=== PATIENT | female | born 1965 | race Caucasian/White ===

== ENCOUNTER 2017-04-07 10:00 | Inpatient (IN) | payer OTHER ==
--- NOTE | ~2017-04-07 | DS ---
Unit #: [id number] #: [id number] Patient: DAMION BILLINGSLEY [id number] [facility] [address] [place] [address] [id number] I MR#: [id number] NAME: DAMION BILLINGSLEY ROOM: 79 Age: 51 Sex: F Admission Date: 04/07/2017 : 1965 Discharge Date: 04/09/2017 Attending Physician: Joaquín Peña M.D. DISCHARGE SUMMARY REASON FOR ADMISSION Depression. DIAGNOSTIC STUDIES LABORATORY RESULTS: Unremarkable except calcium 8.2. [place] level 0.3. Hemoglobin 10.2. HOSPITAL COURSE The patient was admitted to inpatient unit on 04/07/2017 and discharged on 04/09/2017. The patient was treated on the inpatient unit with group therapy, individual therapy, medication management, and structured milieu. The patient responded well with the above modalities of treatment, made progress, able to contract for safety. Subsequently, the patient was discharged with a plan to follow up in outpatient program. DISCHARGE MEDICATIONS Prozac 60 mg daily for depression, doxepin 100 mg at bedtime for sleep, lithium carbonate 300 mg t.i.d. for mood stabilization, Vistaril 25 mg t.i.d. for anxiety. DISCHARGE DIAGNOSES Psychiatric: Major depressive disorder, recurrent, severe, F33.2; alcohol use disorder, severe, F10.20. Secondary diagnosis: Deferred. Medical diagnosis: Obesity. Stressors: Psychosocial stressor. DISCHARGE INSTRUCTIONS The patient to follow up in outpatient clinic as per high school social studies tutor. CONDITION ON DISCHARGE The patient was pleasant and cooperative. Denied any psychotic symptom or any suicidal ideation. PROGNOSIS Guarded. DIET AND ACTIVITY As tolerated. Unit #: [id number] #: [id number] Patient: DAMION BILLINGSLEY Dictated by... Vasyl Jean Baptiste/ralph TD: 04/09/2017 23:27 JOB #: [id number] DISCHARGE SUMMARY Page 1 of 1 X Jaoquín Peña MD X DISCHARGE SUMMARY
--- NOTE | ~2017-04-07 | HP ---
Unit #: [id number] #: [id number] Patient: DAMION BILLINGSLEY [id number] [place] [address] [id number] MR#: [id number] NAME: DAMION BILLINGSLEY ROOM: P179 Age: 51 Sex: F Admission Date: 04/07/2017 : 1965 Attending Physician: Joaquín Peña M.D. Admitting Physician: Joaquín Peña M.D. HISTORY AND PHYSICAL HISTORY OF PRESENT ILLNESS The patient is a 51-year-old female, admitted to [facility] on 04/07/2017, for psychosis, and alcohol abuse. PAST MEDICAL HISTORY 1. Obesity. 2. Hypothyroidism. PAST SURGICAL HISTORY 1. Thyroidectomy. 2. Hysterectomy. 3. Gastric bypass. ALLERGIES Penicillin. SOCIAL HISTORY The patient is unemployed. She lives in a hotel. She smokes one pack of cigarettes daily. She drinks one liter of vodka per day. FAMILY MEDICAL HISTORY Noncontributory. REVIEW OF SYSTEMS CONSTITUTIONAL: No fever or chills. HEENT: Denies any sore throat, ear pain or runny nose. CARDIOVASCULAR: Denies chest pain, irregular heart rhythm or palpitations. CHEST: Denies shortness of breath or cough. No hemoptysis. GASTROINTESTINAL: Denies nausea, vomiting, diarrhea or chronic constipation. ENDOCRINE: Denies history of increased thirst or urination. No recent significant weight loss or gain. GENITOURINARY: Denies dysuria, frequency, or hematuria. SKIN: Denies any rashes. HEMATOLOGIC: Denies history of increased bleeding or bruising. MUSCULOSKELETAL: Denies any hot, swollen joints. No generalized muscle pain. NEUROLOGIC: Denies problems with vision or speech. No frequent, severe headaches. No numbness, tingling or weakness in any extremities. Denies loss of bladder or bowel control. CURRENT MEDICATIONS Include: Unit #: [id number] #: [id number] Patient: DAMION BILLINGSLEY 1. Seroquel 2. Synthroid 3. Calcitrol 4. Abilify 5. Prozac 6. [place] 7. Xanax 8. Ambien PHYSICAL EXAMINATION GENERAL: She is awake, alert, and oriented, and in no acute distress. VITAL SIGNS: Temperature 98.6, heart rate 92, respirations 20, and blood pressure 140/80. HEIGHT: 5 feet 3 inches. WEIGHT: 222 pounds. SKIN: Warm and dry without rash or lesion. HEENT: Normocephalic. TMs not viewed. Oral and nasal passages clear. Conjunctivae clear. PERRLA. EOMs intact. NECK: Supple without lymphadenopathy or thyromegaly. HEART: Regular rate and rhythm without murmur. LUNGS: Clear. ABDOMEN: Soft, nontender. : Not done. EXTREMITIES: No evidence of cyanosis, clubbing or edema. Moves all without focal deficit. NEUROLOGICAL: Grossly within normal limits. Cranial Nerves: II: Visual alba are intact. III, IV AND : Extraocular movements are intact. Pupils are equal, round and reactive to light. V: Facial sensation is grossly normal. VII: Facial movements and expression are normal. VIII: Auditory acuity grossly intact. IX, X: Uvula is midline. Phonation is normal. XI: Patient shrugs shoulders and turns head normally. XII: Tongue protrudes in the midline. Sensory and Motor Function: Sensory and motor sensation is grossly normal. Motor: moves all extremities well. Coordination: Gait is normal. Deep Tendon Reflexes: Intact. IMPRESSION 1. Psychiatric admission. 2. Obesity. 3. Hypothyroidism. 4. Alcohol abuse. 5. Nicotine dependence. RECOMMENDATIONS Psychiatric, per psychiatrist. MEDICAL No contraindications to participating in facility's activities. MEDICAL PROGNOSIS Good. MEDICAL CONDITION Stable. Unit #: [id number] #: [id number] Patient: DAMION BILLINGSLEY Dictated by... Jalen Benavides/yeimy TD: 04/09/2017 05:18 JOB #: [id number] HISTORY AND PHYSICAL Page 1 of 1 X ROCK HIDALGO APRN HISTORY AND PHYSICAL
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
[2017-04-09 09:47] LABS: BASOPHIL% 0.8 % (0-2.5); EOSINOPHIL# 0.2 X10e3 (0-0.7); EOSINOPHIL% 2.6 % (0.0-7.0); HEMATOCRIT 33.3 % (35.0-45.0); HEMOGLOBIN 10.2 gm/dL (12.0-16.0); LYMPHOCYTE# 1.5 X10e3 (1.0-3.5); LYMPHOCYTE% 23.7 % (17.0-45.0); MEAN CELL VOLUME 83.3 FL (83-96); MEAN CORPUSCULAR HEMOGLOBIN 25.4 PG (28-34); MEAN CORPUSCULAR HGB CONC 30.5 g/dL (30-36); MEAN PLATELET VOLUME 6.6 FL (6.5-11.5); MONOCYTE# 0.5 X10e3 (0-1.0); MONOCYTE% 8.1 % (3.0-12.0); NEUTROPHIL% 64.8 % (40-75); PLATELET COUNT 450 X10e3 (140-420); WHITE BLOOD COUNT 6.1 X10e3 (4.0-10.5)
[2017-04-09 09:48] LABS: DIFF IND NO
[2017-04-09 10:28] LABS: ALBUMIN SERUM 3.8 g/dL (3.5-5.0); BILIRUBIN,TOTAL 0.9 mg/dL (0.2-2.0); BUN/CREATININE RATIO 15.55; CALCIUM SERUM 8.2 mg/dL (8.4-10.2); CREATININE SERUM 0.9 mg/dL (0.6-1.4); GLOM FILT RATE Estimated 75.1 mL/min (>60); POTASSIUM 4.7 mmol/L (3.5-5.1); PROTEIN TOTAL SERUM 6.9 g/dL (6.0-8.3)
== END 2017-04-09 11:34 | disposition home or self-care (01) | DRG 885 ==
LOC: P1E 18:24
PROVIDERS: Psychiatry & Neurology Psychiatry
DX: F33.2 Major depressive disorder, recurrent severe without psychotic features (principal); E66.9 Obesity, unspecified; F10.20 Alcohol dependence, uncomplicated
CPT/HCPCS: 80053; 80178; 85025; 86592